=== PATIENT | female | born 1995 | race Caucasian/White ===

== ENCOUNTER 2016-12-01 18:36 | Emergency (ER) | payer OTHER ==
[2016-12-01 18:54] VITALS: TEMP 99.7
[2016-12-01] MEDS ORDERED: SODIUM CHLORIDE 0.9% 1,000 ML IV STA (19:09)
[2016-12-01] MEDS ORDERED: ONDANSETRON 4 MG/2 ML VIAL IVP STA (19:09)
[2016-12-01] MEDS ORDERED: DICYCLOMINE 10 MG/ML 2 ML AMP IM STA (19:10)
--- NOTE | 2016-12-01 19:18 | ED ---
General Adult HPI - General Source: patient, RN notes reviewed Mode of arrival: ambulatory Limitations: no limitations <Bakari Childress - Last Filed: 12/01/16 19:57> <Jean-Claude Worthy - Last Filed: 12/01/16 20:30> - General Chief complaint: Abdominal Pain Stated complaint: rt side abdominal pain, black diarrhea Time Seen by Provider: 12/01/16 19:01 - History of Present Illness Initial comments: Patient 21-year-old female who presents emergency room today with a chief complaint of loose black stool over the past 2 days. Patient does admit that she's had some symptoms of nausea vomiting. Admits to abdominal pain just started earlier today. She describes it as crampy sharp type pain on the right side. States seems to get worse at times he states currently not as bad as much sharper this afternoon. Patient denies any signs of blood in the emesis. States she has taken Pepto-Bismol noticed black stool before ever taking any Pepto-Bismol for the symptoms. Patient denies any history of abdominal surgeries. Denies ever having colonoscopy. Denies ever having similar symptoms in the past. Patient denies any recent fever, chills, shortness of breath, chest pain, back pain, numbness or tingling, dysuria or hematuria, constipation or diarrhea, headaches or visual changes, or any other complaints. (Bakari Childress) - Related Data Home Medications Medication Instructions Recorded Confirmed Citalopram Hydrobromide [CeleXA] 40 mg PO DAILY 12/01/16 12/01/16 Ibuprofen [Motrin] 600 mg PO DAILY PRN 12/01/16 12/01/16 Norethindrone-E.estradiol-Iron 1 tab PO DAILY 12/01/16 12/01/16 [Saurabh Fe 1.5-30 Tablet] busPIRone HCL 10 mg PO DAILY 12/01/16 12/01/16 Previous Rx's Medication Instructions Recorded Dicyclomine [Bentyl] 20 mg PO QID #20 tablet 12/01/16 Ondansetron Odt [Zofran ODT] 4 mg PO Q8HR PRN #20 tab 12/01/16 Allergies Allergy/AdvReac Type Severity Reaction Status Date / Time sulfamethoxazole Allergy Rash/Hives Verified 12/01/16 19:25 [From Bactrim] trimethoprim [From Bactrim] Allergy Rash/Hives Verified 12/01/16 19:25 Review of Systems ROS Other: All systems not noted in ROS Statement are negative. <ChildressBakari - Last Filed: 12/01/16 19:57> ROS Other: All systems not noted in ROS Statement are negative. <Jean-Claude Worthy - Last Filed: 12/01/16 20:30> ROS Statement: Those systems with pertinent positive or pertinent negative responses have been documented in the HPI. Past Medical History Past Medical History: No Reported History Additional Past Medical History / Comment(s): Obstetric history: This is her first . She's had care with Dr. Gutierrez since 16 weeks. Her blood type is A+, rubella immune, RPR nonreactive, HIV negative, hepatitis B-, toxoplasmosis negative. Quad screen negative. Normal anatomy ultrasound. GBS negative History of Any Multi-Drug Resistant Organisms: None Reported, MRSA Date of last positivie culture/infection: 2012 MDRO Source:: thigh Past Surgical History: No Surgical Hx Reported Past Psychological History: Depression Additional Psychological History / Comment(s): formerly on depression med Smoking Status: Current every day smoker Past Alcohol Use History: Occasional Past Drug Use History: Marijuana - Past Family History Father Family Medical History: No Reported History <ChildressBakari - Last Filed: 12/01/16 19:57> General Exam Limitations: no limitations <ChildressBakari - Last Filed: 12/01/16 19:57> General appearance: alert, in no apparent distress Head exam: Present: atraumatic, normocephalic, normal inspection Eye exam: Present: normal appearance, PERRL, EOMI. Absent: scleral icterus, conjunctival injection, periorbital swelling ENT exam: Present: normal exam, mucous membranes moist Neck exam: Present: normal inspection. Absent: tenderness, meningismus, lymphadenopathy Respiratory exam: Present: normal lung sounds bilaterally. Absent: respiratory distress, wheezes, rales, rhonchi, stridor Cardiovascular Exam: Present: regular rate, normal rhythm, normal heart sounds. Absent: systolic murmur, diastolic murmur, rubs, gallop, clicks GI/Abdominal exam: Present: soft, normal bowel sounds. Absent: distended, tenderness, guarding, rebound, rigid Extremities exam: Present: normal inspection, full ROM, normal capillary refill. Absent: tenderness, pedal edema, joint swelling, calf tenderness Back exam: Present: normal inspection Neurological exam: Present: alert, oriented X3, CN II-XII intact Psychiatric exam: Present: normal affect, normal mood Skin exam: Present: warm, dry, intact, normal color. Absent: rash <Jean-Claude Worthy - Last Filed: 12/01/16 20:30> - General Exam Comments Initial Comments: General: The patient is awake and alert, in no distress, and does not appear acutely ill. Eye: Pupils are equal, round and reactive to light, extra-ocular movements are intact. No nystagmus. There is normal conjunctiva bilaterally. No signs of icterus. Ears, nose, mouth and throat: There are moist mucous membranes and no oral lesions. Neck: The neck is supple, there is no tenderness or JVD. Cardiovascular: There is a regular rate and rhythm. No murmur, rub or gallop is appreciated. Respiratory: Lungs are clear to auscultation, respirations are non-labored, breath sounds are equal. No wheezes, stridor, rales, or rhonchi. Gastrointestinal: Normal appearance abdomen. Normal bowel sounds. Abdomen soft on palpation. Patient does have mild tenderness epigastric. No rebound tenderness. No guarding. No CVA tenderness. Musculoskeletal: Normal ROM, no tenderness. Strength 5/5. Sensation intact. Pulses equal bilaterally 2+. Neurological: A&O x 3. CN II-XII intact, There are no obvious motor or sensory deficits. Coordination appears grossly intact. Speech is normal. Skin: Skin is warm and dry and no rashes or lesions are noted. Psychiatric: Cooperative, appropriate mood & affect, normal judgment. (Bakari Childress) Course <Bakari Childress - Last Filed: 12/01/16 19:57> <Jean-Claude Worthy - Last Filed: 12/01/16 20:30> Vital Signs 12/01/16 18:48 Temperature 99.7 F H Pulse Rate 87 Respiratory 16 Rate Blood Pressure 121/71 O2 Sat by Pulse 100 Oximetry - Reevaluation(s) Reevaluation #1: 12/01/16 20:29 Patient's symptoms are improved (Jean-Claude Worthy) Medical Decision Making - Lab Data Result diagrams: 12/01/16 19:14 12/01/16 19:14 <Bakari Childress - Last Filed: 12/01/16 19:57> - Lab Data Result diagrams: 12/01/16 19:14 12/01/16 19:14 - Radiology Data Radiology results: report reviewed (X-ray negative for acute disease), image reviewed <Jean-Claude Worthy - Last Filed: 12/01/16 20:30> - Medical Decision Making Patient's labs reviewed and are unremarkable. Patient discharged home with nausea medication and Bentyl for her symptoms. Advised follow family doctor over the next 2 days return to emergency room if any symptoms increase or worsen or further concerns. (Bakari Childress) 21 female to ER with bowel pain. Lab work exam is negative. Patient was discharged home (Jean-Claude Worthy) - Lab Data Lab Results 12/01/16 12/01/16 12/01/16 Range/Units 19:14 19:14 19:14 WBC 5.7 (3.8-10.6) k/uL RBC 4.58 (3.80-5.40) m/uL Hgb 13.8 (11.4-16.0) gm/dL Hct 40.2 (34.0-46.0) % MCV 87.7 (80.0-100.0) fL MCH 30.2 (25.0-35.0) pg MCHC 34.4 (31.0-37.0) g/dL RDW 13.5 (11.5-15.5) % Plt Count 178 (150-450) k/uL Neutrophils % 64 % Lymphocytes % 26 % Monocytes % 5 % Eosinophils % 1 % Basophils % 1 % Neutrophils # 3.6 (1.3-7.7) k/uL Lymphocytes # 1.5 (1.0-4.8) k/uL Monocytes # 0.3 (0-1.0) k/uL Eosinophils # 0.1 (0-0.7) k/uL Basophils # 0.0 (0-0.2) k/uL Sodium 141 (137-145) mmol/L Potassium 3.8 (3.5-5.1) mmol/L Chloride 108 H (98-107) mmol/L Carbon Dioxide 22 (22-30) mmol/L Anion Gap 11 mmol/L BUN 13 (7-17) mg/dL Creatinine 0.64 (0.52-1.04) mg/dL Est GFR (MDRD) Af Amer >60 (>60 ml/min/1.73 sqM) Est GFR (MDRD) Non-Af >60 (>60 ml/min/1.73 sqM) Glucose 81 (74-99) mg/dL Calcium 9.3 (8.4-10.2) mg/dL Total Bilirubin 0.6 (0.2-1.3) mg/dL AST 26 (14-36) U/L ALT 40 (9-52) U/L Alkaline Phosphatase 55 (38-126) U/L Total Protein 7.4 (6.3-8.2) g/dL Albumin 4.4 (3.5-5.0) g/dL Amylase 50 (30-110) U/L Lipase 48 (23-300) U/L Urine Color Urine Appearance (Clear) Urine pH (5.0-8.0) Ur Specific [place] (1.001-1.035) Urine Protein (Negative) Urine Glucose (UA) (Negative) Urine Ketones (Negative) Urine Blood (Negative) Urine Nitrite (Negative) Urine Bilirubin (Negative) Urine Urobilinogen (<2.0) mg/dL Ur Leukocyte Esterase (Negative) Urine RBC (0-5) /hpf Urine WBC (0-5) /hpf Ur Squamous Epith Cells (0-4) /hpf Amorphous Sediment (None) /hpf Urine Bacteria (None) /hpf Urine Mucus (None) /hpf Urine HCG, Qual (Not Detectd) Stool Occult Blood Negative (Negative) 12/01/16 12/01/16 Range/Units 19:30 19:30 WBC (3.8-10.6) k/uL RBC (3.80-5.40) m/uL Hgb (11.4-16.0) gm/dL Hct (34.0-46.0) % MCV (80.0-100.0) fL MCH (25.0-35.0) pg MCHC (31.0-37.0) g/dL RDW (11.5-15.5) % Plt Count (150-450) k/uL Neutrophils % % Lymphocytes % % Monocytes % % Eosinophils % % Basophils % % Neutrophils # (1.3-7.7) k/uL Lymphocytes # (1.0-4.8) k/uL Monocytes # (0-1.0) k/uL Eosinophils # (0-0.7) k/uL Basophils # (0-0.2) k/uL Sodium (137-145) mmol/L Potassium (3.5-5.1) mmol/L Chloride (98-107) mmol/L Carbon Dioxide (22-30) mmol/L Anion Gap mmol/L BUN (7-17) mg/dL Creatinine (0.52-1.04) mg/dL Est GFR (MDRD) Af Amer (>60 ml/min/1.73 sqM) Est GFR (MDRD) Non-Af (>60 ml/min/1.73 sqM) Glucose (74-99) mg/dL Calcium (8.4-10.2) mg/dL Total Bilirubin (0.2-1.3) mg/dL AST (14-36) U/L ALT (9-52) U/L Alkaline Phosphatase (38-126) U/L Total Protein (6.3-8.2) g/dL Albumin (3.5-5.0) g/dL Amylase (30-110) U/L Lipase (23-300) U/L Urine Color Yellow Urine Appearance Cloudy H (Clear) Urine pH 6.0 (5.0-8.0) Ur Specific [place] 1.017 (1.001-1.035) Urine Protein Negative (Negative) Urine Glucose (UA) Negative (Negative) Urine Ketones Negative (Negative) Urine Blood Negative (Negative) Urine Nitrite Negative (Negative) Urine Bilirubin Negative (Negative) Urine Urobilinogen <2.0 (<2.0) mg/dL Ur Leukocyte Esterase Negative (Negative) Urine RBC 1 (0-5) /hpf Urine WBC 2 (0-5) /hpf Ur Squamous Epith Cells 11 H (0-4) /hpf Amorphous Sediment Few H (None) /hpf Urine Bacteria Rare H (None) /hpf Urine Mucus Rare H (None) /hpf Urine HCG, Qual Not Detected (Not Detectd) Stool Occult Blood (Negative) Disposition Time of Disposition: 19:53 <Bakari Childress - Last Filed: 12/01/16 19:57> <Jean-Claude Worthy - Last Filed: 12/01/16 20:30> Clinical Impression: Nausea vomiting and diarrhea Disposition: HOME SELF-CARE Condition: Good Instructions: Traveler's Diarrhea (ED), Acute Nausea and Vomiting (ED) Additional Instructions: Please use medication as discussed. Please follow-up with family doctor in the next 2 days of symptoms have not improved. Please return to emergency room if the symptoms increase or worsen or for any other concerns. Prescriptions: Dicyclomine [Bentyl] 20 mg PO QID #20 tablet Ondansetron Odt [Zofran ODT] 4 mg PO Q8HR PRN #20 tab PRN Reason: Nausea Referrals: Deng Hadley DO [Primary Care Provider] - 1-2 days
[2016-12-01 19:28] LABS: Basophils % (A) 1 %; CH 30.1; CHCM 34.4; Eosinophils # (A) 0.1 k/uL (0-0.7); Eosinophils % (A) 1 %; HCT 40.2 % (34.0-46.0); HDW 2.62; HGB 13.8 gm/dL (11.4-16.0); Luc # (Auto) 0.18; Luc % (Auto) 3; Lymphocytes # (A) 1.5 k/uL (1.0-4.8); Lymphocytes % (A) 26 %; MCH 30.2 pg (25.0-35.0); MCHC 34.4 g/dL (31.0-37.0); MCV 87.7 fL (80.0-100.0); Mean Platelet Volume 8.7; Monocytes # (A) 0.3 k/uL (0-1.0); Monocytes % (A) 5 %; Neutrophils # (A) 3.6 k/uL (1.3-7.7); Neutrophils % (A) 64 %; RBC 4.58 m/uL (3.80-5.40); RDW 13.5 % (11.5-15.5); WBC 5.7 k/uL (3.8-10.6); WBC (Perox) 5.83
[2016-12-01 19:37] LABS: ALT 40 U/L (9-52); AST 26 U/L (14-36); Alkaline Phosphatase 55 U/L (38-126); Amylase 50 U/L (30-110); Anion Gap 11 mmol/L; Blood Urea Nitrogen 13 mg/dL (7-17); Calcium 9.3 mg/dL (8.4-10.2); Carbon Dioxide 22 mmol/L (22-30); Chloride 108 mmol/L (98-107); Glucose 81 mg/dL (74-99); Non-African American GFR(MDRD) >60 (>60 ml/min/1.73 sqM); Potassium 3.8 mmol/L (3.5-5.1); Sodium 141 mmol/L (137-145); Total Bilirubin 0.6 mg/dL (0.2-1.3); Total Protein 7.4 g/dL (6.3-8.2)
[2016-12-01 19:54] LABS: Amorphous Sediment,Urine Few /hpf; Appearance,Urine Cloudy (Clear); Bacteria,Urine Rare /hpf; Bilirubin,Urine Negative (Negative); Glucose,Urine (UA) Negative (Negative); Ketones,Urine Negative (Negative); Leukocyte Esterase,Urine Negative (Negative); Mucus,Urine Rare /hpf; Nitrite,Urine Negative (Negative); Particle Count 8410; Protein,Urine Negative (Negative); RBC,Urine 1 /hpf (0-5); Specific Gravity,Urine 1.017 (1.001-1.035); Squamous Epithelial Cell,Urine 11 /hpf (0-4); UA Billing (MACRO vs. MICRO) MICRO; Urobilinogen,Urine <2.0 mg/dL (<2.0); WBC,Urine 2 /hpf (0-5)
--- NOTE | 2016-12-01 20:26 | XR ---
EXAMINATION TYPE: XR KUB DATE OF EXAM: 12/01/2016 8:08 PM COMPARISON: NONE HISTORY: Right-sided abdominal pain TECHNIQUE: 2 views FINDINGS: There are gas-filled loops of large and small bowel. There is no sign of free air. Lung bas es are clear. There are no pathologic calcifications over the kidneys. IMPRESSION: There is a large amount of intestinal gas that is predominantly in the large bowel consis tent with air swallowing or ileus. No free air.
[2016-12-01 20:38] VITALS: BP 118/71; PULSE 91; RESP 18
== END 2016-12-01 20:38 | disposition home or self-care (01) ==
LOC: EC 18:36
DX: R10.9 Unspecified abdominal pain (principal); R11.2 Nausea with vomiting, unspecified; R19.7 Diarrhea, unspecified; F32.9 Major depressive disorder, single episode, unspecified; F17.200 Nicotine dependence, unspecified, uncomplicated; Z79.899 Other long term (current) drug therapy; Z88.2 Allergy status to sulfonamides
CPT/HCPCS: 36415; 80053; 82150; 83690; 85025; 82272; 81001; 81025; 74000; 99284; 96374; 96361; 96372; J0500; J2405

== ENCOUNTER → 2020-06-16 | Outpatient (CLI) | payer OTHER | END | disposition home or self-care (01) | LOC: LABWHC1 11:35 | PROVIDERS: ATTEND Family Medicine | DX: J02.9 Acute pharyngitis, unspecified (principal); Z20.828 Contact with and (suspected) exposure to other viral communicable diseases | CPT/HCPCS: U0003; C9803 ==

== ENCOUNTER 2020-07-16 18:53 | Emergency (ER) | payer OTHER ==
[2020-07-16] MEDS ORDERED: SODIUM CHLORIDE 0.9% 1,000 ML IV ONE (19:42)
--- NOTE | 2020-07-16 19:50 | ED ---
Female Urogenital HPI - General Chief complaint: Vaginal Bleeding Stated complaint: 8wks preg, cramping Time Seen by Provider: 07/16/20 19:06 Source: patient, RN notes reviewed, old records reviewed Mode of arrival: ambulatory Limitations: no limitations - History of Present Illness Initial comments: Patient is a 24-year-old female presents emergency department today stating she's having some lower abdominal cramping and back pain and early . She believes that she is approximately 8 weeks based on last menstrual period however she is unsure because she finished control was had abnormal menstrual periods since that time. She states that she is a female last was 5 years ago. She does have upgoing appointment this week with [facility]. Patient reports she has not had any appointments at this time for this . - Related Data Home Medications Medication Instructions Recorded Confirmed No Known Home Medications 07/16/20 07/16/20 Allergies Allergy/AdvReac Type Severity Reaction Status Date / Time sulfamethoxazole Allergy Rash/Hives Verified 07/16/20 21:42 [From Bactrim] trimethoprim [From Bactrim] Allergy Rash/Hives Verified 07/16/20 21:42 Review of Systems ROS Statement: Those systems with pertinent positive or pertinent negative responses have been documented in the HPI. ROS Other: All systems not noted in ROS Statement are negative. Past Medical History Past Medical History: No Reported History Additional Past Medical History / Comment(s): Obstetric history: This is her f irst . She's had care with Dr. Gutierrez since 16 weeks. Her blood type is A+, rubella immune, RPR nonreactive, HIV negative, hepatitis B-, toxoplasmosis negative. Quad screen negative. Normal anatomy ultrasound. GBS negative History of Any Multi-Drug Resistant Organisms: None Reported, MRSA Date of last positivie culture/infection: 2012 MDRO Source:: thigh Past Surgical History: No Surgical Hx Reported Past Psychological History: Depression Smoking Status: Vaper Past Alcohol Use History: Occasional Past Drug Use History: Marijuana - Past Family History Father Family Medical History: No Reported History General Exam - General Exam Comments Initial Comments: 24-year-old female. No distress. Limitations: no limitations General appearance: alert, in no apparent distress Head exam: Present: atraumatic, normocephalic, normal inspection Eye exam: Present: normal appearance, PERRL, EOMI. Absent: scleral icterus, conjunctival injection, periorbital swelling ENT exam: Present: normal exam, mucous membranes moist Neck exam: Present: normal inspection. Absent: tenderness, meningismus, lymphadenopathy Respiratory exam: Present: normal lung sounds bilaterally. Absent: respiratory distress, wheezes, rales, rhonchi, stridor Cardiovascular Exam: Present: regular rate, normal rhythm, normal heart sounds. Absent: systolic murmur, diastolic murmur, rubs, gallop, clicks GI/Abdominal exam: Present: soft, normal bowel sounds. Absent: distended, tenderness, guarding, rebound, rigid Extremities exam: Present: normal inspection, full ROM, normal capillary refill. Absent: tenderness, pedal edema, joint swelling, calf tenderness Back exam: Present: normal inspection Neurological exam: Present: alert, oriented X3, CN II-XII intact Psychiatric exam: Present: normal affect Skin exam: Present: warm, dry, intact, normal color. Absent: rash Course Vital Signs 07/16/20 07/16/20 18:55 21:55 Temperature 99.5 F 98 F Pulse Rate 88 68 Respiratory 18 16 Rate Blood Pressure 133/94 124/70 O2 Sat by Pulse 100 100 Oximetry Medical Decision Making - Medical Decision Making 24-year-old female presents with lower abdominal cramping. Back pain. Patient had ultrasound today which showed a single intrauterine gestational sac. She wishes a weeks was unsure based off of last month. At this time her serum hCG is 8000. I discussed the Patient needs to have close follow-up with [facility] for repeat blood tests and ultrasound. She denies vaginal bleeding or discharge at this time. Did discuss pelvic exam change the course of this time she has no further bleeding. I did discuss that she needs to return if there is any worsening signs or symptoms and to have repeat hCG in 2 days. All questions answered return parameters were discussed. Have an upcoming appointment with [facility]. - Lab Data Result diagrams: 07/16/20 19:59 Lab Results 07/16/20 07/16/20 07/16/20 Range/Units 19:59 19:59 19:59 WBC 8.6 (3.8-10.6) k/uL RBC 4.12 (3.80-5.40) m/uL Hgb 12.7 (11.4-16.0) gm/dL Hct 37.2 (34.0-46.0) % MCV 90.4 (80.0-100.0) fL MCH 30.9 (25.0-35.0) pg MCHC 34.2 (31.0-37.0) g/dL RDW 12.7 (11.5-15.5) % Plt Count 195 (150-450) k/uL MPV 10.0 Neutrophils % 55 % Lymphocytes % 35 % Monocytes % 6 % Eosinophils % 3 % Basophils % 1 % Neutrophils # 4.7 (1.3-7.7) k/uL Lymphocytes # 3.0 (1.0-4.8) k/uL Monocytes # 0.5 (0-1.0) k/uL Eosinophils # 0.2 (0-0.7) k/uL Basophils # 0.0 (0-0.2) k/uL HCG, Quant 8845.9 mIU/mL Urine Color Light Yellow Urine Appearance Clear (Clear) Urine pH 7.0 (5.0-8.0) Ur Specific [place] 1.018 (1.001-1.035) Urine Protein Negative (Negative) Urine Glucose (UA) Negative (Negative) Urine Ketones Negative (Negative) Urine Blood Negative (Negative) Urine Nitrite Negative (Negative) Urine Bilirubin Negative (Negative) Urine Urobilinogen <2.0 (<2.0) mg/dL Ur Leukocyte Esterase Negative (Negative) Blood Type Blood Type Recheck Bld Type Recheck Status 07/16/20 Range/Units 19:59 WBC (3.8-10.6) k/uL RBC (3.80-5.40) m/uL Hgb (11.4-16.0) gm/dL Hct (34.0-46.0) % MCV (80.0-100.0) fL MCH (25.0-35.0) pg MCHC (31.0-37.0) g/dL RDW (11.5-15.5) % Plt Count (150-450) k/uL MPV Neutrophils % % Lymphocytes % % Monocytes % % Eosinophils % % Basophils % % Neutrophils # (1.3-7.7) k/uL Lymphocytes # (1.0-4.8) k/uL Monocytes # (0-1.0) k/uL Eosinophils # (0-0.7) k/uL Basophils # (0-0.2) k/uL HCG, Quant mIU/mL Urine Color Urine Appearance (Clear) Urine pH (5.0-8.0) Ur Specific [place] (1.001-1.035) Urine Protein (Negative) Urine Glucose (UA) (Negative) Urine Ketones (Negative) Urine Blood (Negative) Urine Nitrite (Negative) Urine Bilirubin (Negative) Urine Urobilinogen (<2.0) mg/dL Ur Leukocyte Esterase (Negative) Blood Type A Positive Blood Type Recheck A Pos Bld Type Recheck Status No - Radiology Data Radiology results: report reviewed Slingle intrauterine gestational sac with yolk sac. Follow-up exam recommended in 10 days to confirm a living fetus. Tiny amount of free fluid near the right ovary. Gestational sac measures 8 mm. No adnexal masses seen to suggest ectopic Disposition Clinical Impression: Early stage of , Abdominal pain affecting Disposition: HOME SELF-CARE Condition: Good Instructions (If sedation given, give patient instructions): Abdominal Pain in (ED) Additional Instructions: Patient needs to repeat blood work in 2 days. There is any signs of vaginal bleeding or discharge return to the ER for reevaluation. Patient should follow- up with [facility] next week. Is patient prescribed a controlled substance at d/c from ED?: No Referrals: Deng Hadley DO [Primary Care Provider] - 1-2 days Time of Disposition: 21:41
[2020-07-16 20:29] LABS: Appearance,Urine Clear (Clear); Basophils % (A) 1 %; Bilirubin,Urine Negative (Negative); Blood,Urine Negative (Negative); Color,Urine Light Yellow; Eosinophils # (A) 0.2 k/uL (0-0.7); Eosinophils % (A) 3 %; Glucose,Urine (UA) Negative (Negative); HCT 37.2 % (34.0-46.0); HGB 12.7 gm/dL (11.4-16.0); Ketones,Urine Negative (Negative); Leukocyte Esterase,Urine Negative (Negative); Lymphocytes % (A) 35 %; MCH 30.9 pg (25.0-35.0); MCHC 34.2 g/dL (31.0-37.0); MCV 90.4 fL (80.0-100.0); Monocytes # (A) 0.5 k/uL (0-1.0); Monocytes % (A) 6 %; Neutrophils # (A) 4.7 k/uL (1.3-7.7); Neutrophils % (A) 55 %; Nitrite,Urine Negative (Negative); Platelet Count 195 k/uL (150-450); Protein,Urine Negative (Negative); RBC 4.12 m/uL (3.80-5.40); RDW 12.7 % (11.5-15.5); Specific Gravity,Urine 1.018 (1.001-1.035); Urobilinogen,Urine <2.0 mg/dL (<2.0); WBC 8.6 k/uL (3.8-10.6)
--- NOTE | 2020-07-16 21:20 | US ---
EXAMINATION TYPE: Transabdominal DATE OF EXAM: 07/16/2020 9:06 PM COMPARISON: This is first US for this . CLINICAL HISTORY: pain. Pain. LMP unknown. . EXAM PERFORMED: Transvaginal (TV). Difficult to see any organs TA. EXAM MEASUREMENTS: GESTATIONAL AGE / DATING Physician Established: Not yet established. Dates by LMP: Unknown Dates by First Scan: This is first scan Dates by Current Scan for: Gestational sac measures out of range. MATERNAL ANATOMY Uterus: 8.3 x 4.3 x 4.2 cm. Anteverted. Appears heterogeneous. Right Ovary: 3.6 x 2.8 x 1.7 cm. Area of mixed echogenicity and peripheral vascularity seen: 1.7 x 2. 0 x 1.5 cm. Left Ovary: 3.2 x 1.7 x 1.4 cm. Post CDS / Adnexa: Fluid seen in right adnexa: 2.2 x 2.9 x 0.6 cm. Presence of free fluid: Yes, in right adnexa. Presence of corpus luteal cyst: Area of mixed echogenicity and peripheral vascularity seen in right o vary: 1.7 x 2.0 x 1.5 cm. Presence of subchorionic bleed: Small hypoechoic area seen measurin.3 x 0.5 x 0.5 cm. GESTATION / SURVEY CRL: Not visualized at this time. MSD: 0.84 cm. Measures OOR. Yolk Sac (normal less than 6mm): 2.7 mm. IUP: Gestational sac and yolk sac seen at this time. Date of LMP: Unknown Beta HcG (if available): not available IMPRESSION: Small intrauterine gestational sac with yolk sac. Follow-up exam recommended in 10 days to confirm a living fetus. Tiny amount of free fluid near the right ovary. Gestational sac measures 8 mm. No adnex al mass seen to suggest ectopic .
[2020-07-16 21:56] VITALS: BP 124/70; PULSE 68; RESP 16; TEMP 98
== END 2020-07-16 21:55 | disposition home or self-care (01) ==
LOC: EC 18:53
DX: O26.891 Other specified pregnancy related conditions, first trimester (principal); R10.30 Lower abdominal pain, unspecified; M54.9 Dorsalgia, unspecified; O99.331 Smoking (tobacco) complicating pregnancy, first trimester; F17.290 Nicotine dependence, other tobacco product, uncomplicated; Z3A.00 Weeks of gestation of pregnancy not specified; Z88.1 Allergy status to other antibiotic agents; Z88.2 Allergy status to sulfonamides; Z86.14 Personal history of Methicillin resistant Staphylococcus aureus infection
CPT/HCPCS: 36415; 76801; 76817; 81003; 84702; 85025; 86900; 86901; 87491; 87591; 99284

== ENCOUNTER → 2020-07-18 | Outpatient (CLI) | payer OTHER | END | disposition home or self-care (01) | LOC: LABMAIN 14:07 | PROVIDERS: ATTEND Physician Assistant Medical | DX: O20.0 Threatened abortion (principal) | CPT/HCPCS: 36415; 84702 ==

== ENCOUNTER 2021-03-08 09:04 | Outpatient (CLI) | payer OTHER ==
[2021-03-08 11:35] VITALS: BP 139/85; PULSE 99; RESP 16; TEMP 96.3
--- NOTE | 2021-03-14 09:06 | P.MSEPDOC ---
Presenting Problems - Arrival Data Date of Arrival on Unit: 03/08/21 Time of Arrival on Unit: 09:04 Mode of Transport: Ambulatory - Complaint OB-Reason for Admission/Chief Complaint: Possible Onset of Labor Medical History - Information : 2 Para: 1 Term: 1 : 0 Abortions: Spontaneous or Elective: 0 Number of Living Children: 1 - Gestational Age Gestational Age by BIN (wks/days): 38 Weeks and 6 Days Review of Systems - Review of Systems Constitutional: No problems Breast: No problems ENT: No problems Cardiovascular: No problems Respiratory: No problems Gastrointestinal: No problems Genitourinary: No problems Musculoskeletal: No problems Neurological: No problems Skin: No problems Vital Signs - Temperature Temperature: 96.3 F Temperature Source: Temporal Artery Scan - Pulse Right Brachial Pulse Rate: 99 Pulse Assessment Method: Automatic Cuff - Respirations Respiratory Rate: 16 Oxygen Delivery Method: Room Air O2 Sat by Pulse Oximetry: 96 - Blood Pressure Right Arm Blood Pressure: 139/85 Blood Pressure Mean: 103 Blood Pressure Source: Automatic Cuff Medical Screen Scoring - Cervical Exam Dilation (cm): 3 Effacement (%): 0 Station: -3 Membranes: Intact - Assessment - Baby A Baseline FHR: 125 Heart Rate - NICHD Category: Category I (Normal) NST: Reactive Physician Notification - Physician Notified Physician Notified Date: 03/08/21 Physician Notified Time: 11:00 Physician: Michelle Hwang Order Received: Yes Maternal Triage Index - Maternal Triage Index Presenting for scheduled procedure w/no complaint: No - Stat/Priority 1 Stat Priority 1: No - Urgent/Priority 2 Urgent Priority 2: No - Prompt/Priority 3 Prompt Priority 3: No - Non-Urgent/Priority 4 Non-Urgent Priority 4: Yes Criteria Met for Priority 4: 38 6/7 irregular contractions Disposition - Disposition OB Disposition: Physician follow up in office, Triage, Discharge to home Discharge Date: 03/08/21 Discharge Time: 11:06 I agree with the RN Medical Screening Exam: Yes Case reviewed; plan agreed upon as documented in EMR&OBIX.: Yes Comments: Patient was seen were examined by me at this visit Diagnosis: FALSE LABOR AT OR AFTER 37 COMPLETED WEEKS OF GESTATION
== END 2021-03-08 11:06 | disposition home or self-care (01) ==
LOC: FBPOP 09:04
PROVIDERS: ATTEND Obstetrics & Gynecology
DX: O47.1 False labor at or after 37 completed weeks of gestation (principal); Z3A.38 38 weeks gestation of pregnancy; Z88.2 Allergy status to sulfonamides
CPT/HCPCS: 99213

== ENCOUNTER 2021-03-12 08:35 | Inpatient (IN) | payer OTHER ==
[2021-03-12] MEDS ORDERED: METHYLERGONOVINE 0.2 MG/ML 1 ML AMP IM PRN (09:23)
[2021-03-12] MEDS ORDERED: OXYTOCIN 10 UNIT/ML 1 ML VIAL IM PRN (09:23)
[2021-03-12] MEDS ORDERED: TERBUTALINE 1 MG/ML VIAL SQ PRN (09:23)
[2021-03-12] MEDS ORDERED: CARBOPROST TROMETHAMINE 250 MCG/ML 1 ML AMP IM PRN (09:23)
[2021-03-12] MEDS ORDERED: LIDOCAINE 0.5% (PF) 5 MG/ML (50 ML SDV) SQ PRN (09:23)
--- NOTE | 2021-03-12 09:24 | P.HPOB ---
History of Present Illness H&P Date: 03/12/21 Chief Complaint: Water broke 2 this morning This is a 25-year-old white female 2 para 1001 EDC 03/16/2021 at 39-3/7 weeks' gestation who presents this morning with a complaint of fluid leaking since 2 AM. She is having contractions every 15 minutes apart. Fetus is been active throughout the . Past medical history is significant for ovarian cysts. Past surgical history negative. Current medications vitamins daily. ALLERGIES Bactrim, reaction unknown. Family history is significant for hypertension and breast cancer. Reproductive history spontaneous vaginal delivery 2014, 7 pound male infant. 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 She denies alcohol or drug use. history blood type is A+, rubella status immune. VDRL testing, repeat urine culture, hepatitis B surface antigen, HIV testing, gonorrhea and chlamydia cultures, group B strep cultures all negative. One-hour Glucola 96. On examination patient is 5 foot 2 inches, 180 pounds, vital signs are stable and she is afebrile. General physical exam is within normal limits. Cervix is 4-5 cm dilated, posterior, 70% effaced, -2 station, vertex presentation. There is a fore bag that is palpated and ruptured for clear fluid. heart rate is consistent with reactive NST with a baseline of 140. Impression: 39-3/7 weeks intrauterine , early spontaneous labor. All signs reassuring. Plan: Epidural will be placed per patient's request. Close maternal and surveillance. Oxytocin if clinically indicated. Anticipate normal spontaneous vaginal delivery. Review of Systems Constitutional: Reports as per HPI Past Medical History Past Medical History: No Reported History Additional Past Medical History / Comment(s): Obstetric history: This is her first . She's had care with Dr. Gutierrez since 16 weeks. Her blood type is A+, rubella immune, RPR nonreactive, HIV negative, hepatitis B-, toxoplasmosis negative. Quad screen negative. Normal anatomy ultrasound. GBS negative History of Any Multi-Drug Resistant Organisms: None Reported, MRSA Date of last positivie culture/infection: 2012 MDRO Source:: thigh, hand Past Surgical History: No Surgical Hx Reported Smoking Status: Never smoker - Past Family History Father Family Medical History: No Reported History Medications and Allergies Home Medications Medication Instructions Recorded Confirmed Type No Known Home Medications 07/16/20 03/12/21 History Allergies Allergy/AdvReac Type Severity Reaction Status Date / Time sulfamethoxazole Allergy Rash/Hives Verified 03/12/21 09:00 [From Bactrim] trimethoprim [From Bactrim] Allergy Rash/Hives Verified 03/12/21 09:00 Exam Intake and Output 03/11/21 03/12/21 03/12/21 22:59 06:59 14:59 Other: Weight 87.543 kg See dictation under HPI please Assessment and Plan Assessment: 39-3/7 weeks intrauterine , early spontaneous labor. Amniorrhexis. All signs reassuring. Plan: Admit patient. Analgesic options reviewed. Close maternal and surveillance. Oxytocin as clinically indicated. Anticipate normal spontaneous vaginal delivery. Time with Patient: Less than 30
[2021-03-12] MEDS ORDERED: OXYTOCIN 30 UNITS/500 ML NS 30 UNIT in SALINE 1 500ML.BAG IV SCH (09:30)
[2021-03-12] MEDS: LACTATED RINGERS 1,000 ML IV SCH ×4 (09:35→18:50)
[2021-03-12 09:53] VITALS: RESP 16
[2021-03-12 09:58] LABS: Basophils % (A) 0 %; Eosinophils # (A) 0.1 k/uL (0-0.7); Eosinophils % (A) 1 %; HCT 39.1 % (34.0-46.0); HGB 13.6 gm/dL (11.4-16.0); Lymphocytes # (A) 2.2 k/uL (1.0-4.8); Lymphocytes % (A) 22 %; MCH 31.2 pg (25.0-35.0); MCHC 34.9 g/dL (31.0-37.0); MCV 89.4 fL (80.0-100.0); Monocytes # (A) 0.5 k/uL (0-1.0); Monocytes % (A) 5 %; Neutrophils # (A) 7.1 k/uL (1.3-7.7); Neutrophils % (A) 70 %; Platelet Count 145 k/uL (150-450); RBC 4.37 m/uL (3.80-5.40); RDW 14.1 % (11.5-15.5); WBC 10.1 k/uL (3.8-10.6)
[2021-03-12 10:24] LABS: Large Platelets Present
[2021-03-12] MEDS ORDERED: fentaNYL (PF) 50 MCG/ML 5 ML AMP ONE (10:28)
[2021-03-12] MEDS ORDERED: SODIUM CHLORIDE 0.9% 100 ML BAG ONE (10:28)
[2021-03-12] MEDS ORDERED: ROPIVACAINE 5MG/ML 20ML VIAL ONE (10:28)
[2021-03-12] MEDS ORDERED: BUTORPHANOL 1 MG/ML 1 ML VIAL IV PRN (11:59)
[2021-03-12] MEDS ORDERED: SIMETHICONE 80 MG CHEWABLE PO PRN (12:40)
[2021-03-12] MEDS ORDERED: diphenhydrAMINE 50 MG/ML 1 ML VIAL IVP PRN ×2 (12:40)
[2021-03-12] MEDS ORDERED: diphenhydrAMINE 25 MG CAP PO PRN (12:40)
[2021-03-12] MEDS ORDERED: BENZOCAINE/MENTHOL SPRAY 1 GM/SPRAY AEROSOL TOPICAL PRN (12:40)
[2021-03-12] MEDS ORDERED: diphenhydrAMINE 50 MG CAP PO PRN (12:40)
[2021-03-12] MEDS ORDERED: LANOLIN CREAM 5 GM TUBE TOPICAL PRN (12:40)
[2021-03-12] MEDS ORDERED: HYDROCORTISONE 2.5% RECTAL CREAM 30 GM TUBE RECTAL PRN (12:40)
[2021-03-12] MEDS ORDERED: ZOLPIDEM 5 MG TAB PO PRN (12:40)
--- NOTE | 2021-03-12 12:40 | P.PROBDLV ---
Vaginal Delivery Note - . Vaginal Delivery Note: This is a 25-year-old white female [address] [facility] 03/16/2021 at 39-3/7 weeks' gestation. Patient presented with spontaneous amniorrhexis at home which occurred at 0200 hrs. Clear fluid. Fetus active throughout the . Group B strep cultures negative, rubella status immune, blood type B positive. Please see my dictated history and physical for details. Oxytocin augmentation was started. Epidural was placed. Patient progressed well through the first stage of labor and became completely dilated. Perineal body was prepped and draped in usual sterile fashion. Very quickly the 's head delivered occiput anterior and she restituted accordingly. There was no nuchal cord noted. The left or anterior shoulder was delivered from underneath the pubic symphysis at which time the oropharynx, nasopharynx, and external nares were all bulb suctioned. Patient was officially delivered of a liveborn female at 1216 hrs. Umbilical cord was doubly clamped and ligated, she was handed to waiting nurses for evaluation where scores of 8 and 9 at one and 5 minutes respectively were given. Placenta delivered spontaneously, it was inspected and noted to be intact, circumvallate, with an asymmetrically inserted 4 along the periphery. It was sent to pathology for evaluation. Uterus is then massaged. Careful inspection of the cervix, vagina, perineum, periurethral, and perirectal areas revealed a small first-degree midline perineal laceration. This was injected with 1% lidocaine and repaired in the usual fashion using repeat suture. Total estimated blood loss 250 mL's. weighed 6 lbs. 5 oz. or 2865 g. All sponge needle and enhancement counts are correct. Patient and her family are allowed to begin the bonding experience in the LDR.
[2021-03-12] MEDS: IBUPROFEN 600 MG TAB PO SCH ×2 (12:57→18:49)
[2021-03-12] MEDS: ACETAMINOPHEN TAB 325 MG TAB PO PRN ×2 (15:28→23:13)
[2021-03-13] MEDS: SENNOSIDES-DOCUSATE SODIUM 1 EACH TAB PO SCH ×2 (01:10→07:36)
[2021-03-13] MEDS: IBUPROFEN 600 MG TAB PO SCH ×2 (03:03→11:20)
--- NOTE | 2021-03-13 07:17 | P.DS ---
Providers Date of admission: 03/12/21 09:17 Expected date of discharge: 03/13/21 Attending physician: Sean Baltazar Primary care physician: Stated None Hospital Course: This is a 25-year-old white female 2 para 1001 [facility] 03/16/2021 who presented at 39-3/7 weeks' gestation in active labor. is remarkable for circumvallate placenta, blood type A+, rubella status immune, group B strep cultures negative. Please see dictated history and physical for details. Patient was admitted, artificial amniorrhexis revealed clear fluid. Epidural was placed per her request. She went on to deliver vaginally a liveborn female with scores of 8 and 9 at one and 5 minutes respectively. Infant weighed 6 lbs. 5 oz. or 2865 g. There was a small first-degree perineal laceration repaired easily, estimated blood loss 250 mL's. Please see dictated delivery note for details. This morning the patient is doing well. She is voiding, ambulate in, passing flatus without difficulty. Vital signs are stable and she is afebrile. Fundus is firm and in the midline, symmetric and 18 week size. Extremities are negative for edema. [place] is doing well. Breast-feeding is going well. I have provided her with a prescription for a double electric breast pump per her request. Patient is being discharged home today in very good condition. 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 She is reminded no intercourse, tampons or douching. She will use [id number] Advil or Aleve, or Motrin as needed for pain. She will call with any fevers shakes or chills, foul smelling or copious lochia, with the passage of large blood clots, with any pain not alleviated by [id number] products, or indeed with any concerns. Assessment: Doing well day #1 Patient Condition at Discharge: Good Plan - Discharge Summary Discharge Rx Participant: No New Discharge Prescriptions: No Action No Known Home Medications Discharge Medication List No Known Home Medications 07/16/20 [History] Follow up Appointment(s)/Referral(s): Sean Baltazar MD [STAFF PHYSICIAN] - 6 Weeks Discharge Disposition: HOME SELF-CARE
[2021-03-13] MEDS: ACETAMINOPHEN TAB 325 MG TAB PO PRN (07:36)
[2021-03-13 12:35] VITALS: BP 146/77; PULSE 86; TEMP 98.1
== END 2021-03-13 13:25 | disposition home or self-care (01) | DRG 807 ==
LOC: FBPOP 08:35 → 4FBP 09:17
PROVIDERS: ADMIT Obstetrics & Gynecology; ATTEND Obstetrics & Gynecology
PROC: 10E0XZZ Delivery of Products of Conception, External Approach (ICD-10-PCS; principal; 2021-03-12)
PROC: 0HQ9XZZ Repair Perineum Skin, External Approach (ICD-10-PCS; 2021-03-12)
DX: O70.0 First degree perineal laceration during delivery (principal); Z37.0 Single live birth; Z3A.39 39 weeks gestation of pregnancy; Z80.3 Family history of malignant neoplasm of breast; Z82.49 Family history of ischemic heart disease and other diseases of the circulatory system; Z87.891 Personal history of nicotine dependence; Z88.1 Allergy status to other antibiotic agents
CPT/HCPCS: 59025; 85025; 86850; 86900; 86901; 99213

== ENCOUNTER → 2022-02-18 | Outpatient (CLI) | payer OTHER ==
--- NOTE | 2022-02-20 08:19 | US ---
EXAMINATION TYPE: US thyroid st tissue head/neck DATE OF EXAM: 02/18/2022 COMPARISON: NONE CLINICAL HISTORY: E07.9 Disorder of thyroid. abn labs GLAND SIZE: Right Lobe: 4.8 x 1.5 x 1.8 cm Overall Parenchyma: heterogenous Left Lobe: 5.0 x 1.7 x 1.5 cm Overall Parenchyma: heterogeneous Isthmus Thickness: 0.6 cm NODULES RIGHT: # of nodules measured on right: 0 LEFT: # of nodules measured on left: 0 ISTHMUS: # of nodules measured in the isthmus: 0 Bilateral neck scanned, no evidence of lymphadenopathy. Markedly heterogeneous normal-sized thyroid without discrete nodule. IMPRESSION: As above.
== END | disposition home or self-care (01) ==
LOC: RADUSWWP 16:56
PROVIDERS: ATTEND Family Medicine
DX: E07.9 Disorder of thyroid, unspecified (principal)
CPT/HCPCS: 76536

== ENCOUNTER → 2024-03-14 | Outpatient (CLI) | payer BC ==
--- NOTE | 2024-03-14 16:07 | US ---
EXAMINATION TYPE: US thyroid st tissue head/neck DATE OF EXAM: 03/14/2024 COMPARISON: NONE CLINICAL INDICATION: Female, 28 years old with history of E04.1 THYROID NODULE; Hypothyroidism GLAND SIZE: Right Lobe: 4.7 x 1.8 x 1.9 cm Overall Parenchyma: heterogeneous Left Lobe: 5.0 x 1.4 x 2.0 cm Overall Parenchyma: heterogeneous Isthmus Thickness: .3 cm NODULES RIGHT: # of nodules measured on right: 0 LEFT: # of nodules measured on left: 0 ISTHMUS: # of nodules measured in the isthmus: 0 Bilateral neck scanned, no evidence of lymphadenopathy. IMPRESSION: Thyroid tissue diffusely heterogeneous suggestive of thyroiditis. 2017 ACR TI-RADS LEVEL: TR-RADS 1 - BENIGN: No FNA *Highest TI-RADS level nodule reported
== END | disposition home or self-care (01) ==
LOC: RADUSWWP 15:16
PROVIDERS: ATTEND Internal Medicine
DX: E03.8 Other specified hypothyroidism (principal); E04.2 Nontoxic multinodular goiter
CPT/HCPCS: 76536